=== PATIENT | male | born 1955 | race Caucasian/White ===

== ENCOUNTER 2022-05-18 08:16 | Emergency (ER) | payer OTHER ==
[~2022-05-18] VITALS: Wt 93.0 kg
== END 2022-05-18 09:37 | disposition home or self-care (01) ==
LOC: ED 08:16
DX: S01.511A Laceration without foreign body of lip, initial encounter (principal); W22.8XXA Striking against or struck by other objects, initial encounter; Y93.89 Activity, other specified; Y92.89 Other specified places as the place of occurrence of the external cause; Y99.8 Other external cause status